=== PATIENT | female | born 1960 | race Caucasian/White ===

== ENCOUNTER 2016-10-15 08:05 | Emergency (ER) | payer OTHER ==
[~2016-10-15] VITALS: Ht 167.6 cm; Wt 72.7 kg
[2016-10-15 08:09] VITALS: BP 149/94; PULSE 81; RESP 15; O2SAT 97
--- NOTE | 2016-10-15 08:58 | ED.REPORT ---
HPI-Hand Prob/Inj Date of Service Oct 15, 2016 ED Provider: Dr. Crandall Pt is a generally healthy 56 y/o female presenting to the ED due to right thumb injury which occurred prior to arrival. 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 and while closing a drawer her right thumb was caught on the underside causing a mild laceration and a small amount of bleeding. She denies any other injuries , numbness, or weakness. Nursing Notes Stated Complaint: RIGHT THUMB LACERATION Chief Complaint: Extremity Trauma Nursing Notes Reviewed: Yes Allergies: Coded Allergies: No Known Allergies (Unverified , 10/15/16) General Time Seen by Provider: 09:09 Chief Complaint Finger injury right Hx Obtained From: Patient Arrived By: Walk-in Onset Occurred: Just prior to arrival Symptom Duration: Since onset Progression Since Onset: Gradually improving Caused by: Accidental Quality: Painful Severity: Current: No pain currently Severity: Maximum: Mild Recent Healthcare: No recent hospitalization Similar Sx Previous: No Past Medical History Past Medical History ADHD Depression Anxiety Past Surgical History None reported Smoking History Unknown if Ever Smoker Social History 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 Hematologic: Reports Bleeding Physical Exam Initial Vital Signs Vital Signs (First) Date Time Temp Pulse Resp B/P Pulse Ox O2 Delivery O2 Flow Rate FiO2 10/15/16 08:09 36.6 81 15 149/94 97 Room Air Initial VS: Reviewed, Vital signs normal Head / Eyes: Atraumatic, Normocephalic ENT: Mucous membranes moist, Conjunctiva normal, No scleral icterus Neck: Supple, Full range of motion Respiratory: No respiratory distress Cardiovascular: Intact distal pulses Abdomen / GI: No distention Extremities: Vascular intact, Neuro intact Skin: Warm, Dry, No cyanosis Neurologic: Alert, Oriented, Nonfocal Psychiatric: Mood/affect normal, Behavior normal, Normal thought content Wrist / Hand: Full range of motion, No deformity, Neurologic intact, Vascular intact, No ligamentous injury, Tendon function NL, No compartment syndrome, No circumferential injury, No clubbing/cyanosis, No edema Transverse laceration of the tip of the right thumb of the radial aspect involving the nail but not the nail bed General/Constitutional: Awake, Alert, No acute distress, Cooperative, Not toxic appearing Re-Eval/Medical Decision Re-Evaluation/Progress : Time of Eval: 10:01 Re-Evaluation/Progress Note: Pt rechecked. Informed pt of plan for discharge. Pt understands and agrees with plan for discharge. F/U instructions and RTER warnings given. All questions addressed. Counseled Regarding: Diagnosis, Need for follow-up, When/why to return to ED Discharge & Departure Primary Impression: Laceration of right thumb Encounter type: initial encounter Qualified Code: S61.011A - Laceration without foreign body of right thumb without damage to nail, initial encounter Disposition: Home Discharge Condition All VS Reviewed: Yes Condition: Improved Patient Instructions: Finger Laceration (ED) Additional Instructions: Wash gently once daily with running clean water and a little bit of liquid soap. Air dry then apply and antibiotic ointment and nonstick dressing. Replace the cage. After a number of days the wound should have stabilized and a more simple dressing would be appropriate. Keep it dressed and treated tenderly until the wound is stabilized completely. Follow-up right away for signs or symptoms of infection. It is probably okay to return to work later this week as long as you baby it a bit and keep well covered and tightly bandaged while working with patients. Referrals: Murray Ang MD (PCP) Rocky Pritchett MD (Family) Scribe Attestation Portions of this note were transcribed by Shadi Jarquin. I, Dr. Crandall personally performed the history, physical exam and medical decision-making; I reviewed and confirmed the accuracy of the information in the transcribed note. copies to: Murray Ang MD; Rocky Pritchett MD, Kirk H MD Oct 15, 2016 08:58 SHADI JARQUIN Oct 15, 2016 09:14
== END 2016-10-15 10:12 | disposition home or self-care (01) ==
LOC: SED 08:05
DX: S61.011A Laceration without foreign body of right thumb without damage to nail, initial encounter (principal); W22.8XXA Striking against or struck by other objects, initial encounter; Y93.89 Activity, other specified; Y92.538 Other ambulatory health services establishments as the place of occurrence of the external cause; Y99.0 Civilian activity done for income or pay